=== PATIENT | female | born 1970 | race Caucasian/White ===

== ENCOUNTER 2021-12-22 13:54 | Observation (INO) ==
[2021-12-22] MEDS ORDERED: *HR* OxyCODONE/APAP 5/325 TABLET PO ONE (14:41)
[2021-12-22 15:32] LABS: Basophils % 0.5 %; Eosinophils # 0.1 K/mcL (0.0-0.6); Eosinophils % 1.7 %; Hematocrit 34.7 % (35.3-44.9); Hemoglobin 10.8 g/dL (11.5-15.4); Immature Granulocytes % 0.4 % (0-4); Lymphocytes # 0.9 K/mcL (0.6-4.6); Lymphocytes % 12.6 %; Mean Corpuscular HGB Conc 31.1 g/dL (31.6-35.5); Mean Corpuscular Hemoglobin 28.1 pg (28.0-33.3); Mean Corpuscular Volume 90.1 fL (83.0-100.0); Mean Platelet Volume 9.4 fL (9.4-12.4); Monocytes # 0.9 K/mcL (0.0-1.3); Monocytes % 11.4 %; Neutrophils # 5.5 K/mcL (1.6-8.9); Platelet Count 483 K/mcL (140-400); Red Blood Count 3.85 M/mcL (3.82-4.97); Red Cell Distribution Width 15.9 % (11.5-14.5); Segmented Neutrophils % 73.4 %; White Blood Count 7.4 K/mcL (4.3-11.1)
[2021-12-22 15:54] LABS: Albumin 3.9 g/dL (3.5-5.7); Albumin/Globulin Ratio 1.1 (1.1-2.2); Bilirubin,Total 0.3 mg/dL (0.3-1.0); Calcium 8.9 mg/dL (8.6-10.3); Globulin 3.6 g/dL (2.4-3.5); Potassium 2.4 mEq/L (3.5-5.1); Total Protein 7.5 g/dL (6.4-8.9)
[2021-12-22 16:37] LABS: Magnesium 1.7 mg/dL (1.6-2.6)
[2021-12-22] MEDS ORDERED: 0.9 % Sodium Chloride 500 ML IVC ONE (17:09)
[2021-12-22] MEDS ORDERED: Naloxone 0.4 MG/ML INJ IVP PRN (17:52)
[2021-12-22] MEDS ORDERED: Ondansetron ODT 4 MG TAB.RAPDIS SL PRN (17:52)
[2021-12-22] MEDS ORDERED: Budesonide/Formoterol 160/4.5 1 PUFF INH IH PRN (17:53)
[2021-12-22] MEDS ORDERED: 0.9 % Sodium Chloride 250 ML ONE (19:37)
[2021-12-22] MEDS: Gabapentin 300 MG CAPSULE PO SCH (19:45)
[2021-12-22] MEDS: *HR* Rivaroxaban 10 MG TABLET PO SCH (19:45)
[2021-12-22 21:27] LABS: Bacteria,Urine Few per hpf (None-Few); Bilirubin,Urine Negative (Negative); Blood,Urine Negative (Negative); Clarity,Urine Clear (Clear); Color,Urine Light-Yellow (Yellow); Glucose,Urine (UA) Normal (Normal); Ketones,Urine Trace mg/dL (Negative); Leukocyte Esterase,Urine Negative (Negative); Mucus,Urine Few per lpf (None-Few); Nitrite,Urine Negative (Negative); PH,Urine 6.5 pH Units (5.0-8.0); Protein,Urine 30 mg/dL (Neg-Trace); RBC,Urine 0-3 per hpf (0-3); Specific Gravity,Urine 1.018 (1.010-1.025); Squamous Epithelial Cell,Urine Moderate per hpf (None-Few); Urobilinogen,Urine Normal (Normal); WBC,Urine 0-3 per hpf (0-3)
[2021-12-22 21:35] LABS: Protein/Creatinine Ratio,Urine 0.57 mg/mg (0.00-0.20); Sodium, Urine 35.4 mEq/L
[2021-12-23 06:20] LABS: Basophils % 0.8 %; Eosinophils # 0.2 K/mcL (0.0-0.6); Eosinophils % 4.3 %; Hematocrit 35.1 % (35.3-44.9); Hemoglobin 10.9 g/dL (11.5-15.4); Immature Granulocytes % 0.4 % (0-4); Lymphocytes # 1.5 K/mcL (0.6-4.6); Lymphocytes % 29.5 %; Mean Corpuscular HGB Conc 31.1 g/dL (31.6-35.5); Mean Corpuscular Hemoglobin 28.4 pg (28.0-33.3); Mean Corpuscular Volume 91.4 fL (83.0-100.0); Mean Platelet Volume 9.5 fL (9.4-12.4); Monocytes # 0.7 K/mcL (0.0-1.3); Monocytes % 13.8 %; Neutrophils # 2.7 K/mcL (1.6-8.9); Platelet Count 437 K/mcL (140-400); Red Blood Count 3.84 M/mcL (3.82-4.97); Red Cell Distribution Width 16.3 % (11.5-14.5); Segmented Neutrophils % 51.2 %; White Blood Count 5.2 K/mcL (4.3-11.1)
[2021-12-23 06:32] LABS: INR 1.5; Prothrombin Time 16.4 Seconds (9.4-12.1)
[2021-12-23 06:39] LABS: BUN/Creatinine Ratio 12 (6-26); Blood Urea Nitrogen 12 mg/dL (6-20); Calcium 8.9 mg/dL (8.6-10.3); Carbon Dioxide 24 mEq/L (23-29); Chloride 104 mEq/L (98-107); Glucose 111 mg/dL (70-105); Magnesium 2.2 mg/dL (1.6-2.6); Osmolality,Calculated 282 (280-300); Potassium 2.6 mEq/L (3.5-5.1); Sodium 136 mEq/L (136-145); eGFR For African Americans > 60 (> 60); eGFR For Non-African Americans 56 (> 60)
[2021-12-23 06:51] LABS: Phosphorous 3.2 mg/dL (2.7-4.5)
[2021-12-23] MEDS: Mirtazapine 15 MG TABLET PO SCH (08:12)
[2021-12-23] MEDS: BuPROPion XL (24 HR) 150 MG TABLET PO SCH (08:12)
[2021-12-23] MEDS: Gabapentin 300 MG CAPSULE PO SCH ×2 (08:12→20:38)
[2021-12-23] MEDS ORDERED: 0.9 % Sodium Chloride 250 ML ONE (08:29)
[2021-12-23] MEDS ORDERED: Furosemide 40 MG TABLET PO SCH (09:00)
[2021-12-23] MEDS ORDERED: Spironolactone 25 MG TABLET PO SCH (09:00)
[2021-12-23] MEDS: *HR* Rivaroxaban 10 MG TABLET PO SCH (18:39)
[2021-12-23] MEDS: hydrOXYzine pamoate 25 MG CAPSULE PO PRN (20:38)
[2021-12-24 03:39] LABS: Basophils % 0.7 %; Eosinophils # 0.2 K/mcL (0.0-0.6); Eosinophils % 4.3 %; Hematocrit 32.6 % (35.3-44.9); Hemoglobin 10.3 g/dL (11.5-15.4); Immature Granulocytes % 0.4 % (0-4); Lymphocytes # 1.7 K/mcL (0.6-4.6); Lymphocytes % 32.4 %; Mean Corpuscular HGB Conc 31.6 g/dL (31.6-35.5); Mean Corpuscular Hemoglobin 28.6 pg (28.0-33.3); Mean Corpuscular Volume 90.6 fL (83.0-100.0); Mean Platelet Volume 9.7 fL (9.4-12.4); Monocytes # 0.7 K/mcL (0.0-1.3); Monocytes % 12.3 %; Neutrophils # 2.7 K/mcL (1.6-8.9); Platelet Count 411 K/mcL (140-400); Red Cell Distribution Width 16.6 % (11.5-14.5); Segmented Neutrophils % 49.9 %; White Blood Count 5.4 K/mcL (4.3-11.1)
[2021-12-24 03:48] LABS: BUN/Creatinine Ratio 11 (6-26); Blood Urea Nitrogen 9 mg/dL (6-20); Calcium 9.2 mg/dL (8.6-10.3); Carbon Dioxide 25 mEq/L (23-29); Chloride 107 mEq/L (98-107); Glucose 110 mg/dL (70-105); Osmolality,Calculated 285 (280-300); Sodium 138 mEq/L (136-145); eGFR For African Americans > 60 (> 60); eGFR For Non-African Americans > 60 (> 60)
[2021-12-24] MEDS: Gabapentin 300 MG CAPSULE PO SCH ×2 (09:11→20:19)
[2021-12-24] MEDS: BuPROPion XL (24 HR) 150 MG TABLET PO SCH (09:11)
[2021-12-24] MEDS: Mirtazapine 15 MG TABLET PO SCH (09:12)
[2021-12-24 14:31] LABS: BUN/Creatinine Ratio 11 (6-26); Blood Urea Nitrogen 9 mg/dL (6-20); Calcium 9.7 mg/dL (8.6-10.3); Carbon Dioxide 22 mEq/L (23-29); Chloride 106 mEq/L (98-107); Glucose 114 mg/dL (70-105); Osmolality,Calculated 282 (280-300); Potassium 3.9 mEq/L (3.5-5.1); Sodium 136 mEq/L (136-145); eGFR For African Americans > 60 (> 60); eGFR For Non-African Americans > 60 (> 60)
[2021-12-24] MEDS: *HR* Rivaroxaban 10 MG TABLET PO SCH (17:50)
[2021-12-24] MEDS: hydrOXYzine pamoate 25 MG CAPSULE PO PRN (21:54)
[2021-12-25 05:34] LABS: BUN/Creatinine Ratio 14 (6-26); Blood Urea Nitrogen 10 mg/dL (6-20); Calcium 9.3 mg/dL (8.6-10.3); Carbon Dioxide 25 mEq/L (23-29); Chloride 108 mEq/L (98-107); Glucose 111 mg/dL (70-105); Osmolality,Calculated 286 (280-300); Potassium 3.6 mEq/L (3.5-5.1); Sodium 138 mEq/L (136-145); eGFR For African Americans > 60 (> 60); eGFR For Non-African Americans > 60 (> 60)
[2021-12-25] MEDS: Mirtazapine 15 MG TABLET PO SCH (08:26)
[2021-12-25] MEDS: Gabapentin 300 MG CAPSULE PO SCH ×2 (08:27→20:55)
[2021-12-25] MEDS: BuPROPion XL (24 HR) 150 MG TABLET PO SCH (08:27)
[2021-12-25] MEDS ORDERED: Nitroglycerin 0.4 MG TAB.SUBL SL PRN (08:57)
[2021-12-25] MEDS: *HR* OxyCODONE Immed Rel 5 MG TABLET PO PRN (15:28)
[2021-12-25] MEDS ORDERED: Isovue-370 500 ML BOTTLE IVP ONE (17:39)
[2021-12-25] MEDS: *HR* Rivaroxaban 10 MG TABLET PO SCH (18:03)
[2021-12-25] MEDS: hydrOXYzine pamoate 25 MG CAPSULE PO PRN (20:55)
[2021-12-25] MEDS: *HR* HYDROcodone/Acet 5/325 mg TABLET PO PRN (20:56)
[2021-12-26] MEDS: *HR* OxyCODONE Immed Rel 5 MG TABLET PO PRN ×3 (01:46→18:07)
[2021-12-26] MEDS: Melatonin 3 MG TABLET PO PRN ×2 (01:46→22:12)
[2021-12-26 05:21] LABS: Influenza A PCR Negative (Negative); Influenza B PCR Negative (Negative); Resp. Syncytial Virus PCR Negative (Negative)
[2021-12-26] MEDS: *HR* HYDROcodone/Acet 5/325 mg TABLET PO PRN ×3 (05:24→22:12)
[2021-12-26 05:25] LABS: SARS-CoV-2 by PCR (In House) Negative (Negative)
[2021-12-26 07:40] LABS: BUN/Creatinine Ratio 18 (6-26); Blood Urea Nitrogen 10 mg/dL (6-20); Calcium 9.3 mg/dL (8.6-10.3); Carbon Dioxide 24 mEq/L (23-29); Chloride 108 mEq/L (98-107); Glucose 112 mg/dL (70-105); Osmolality,Calculated 284 (280-300); Potassium 4.1 mEq/L (3.5-5.1); Sodium 137 mEq/L (136-145); eGFR For African Americans > 60 (> 60); eGFR For Non-African Americans > 60 (> 60)
[2021-12-26] MEDS: Mirtazapine 15 MG TABLET PO SCH (08:27)
[2021-12-26] MEDS: Gabapentin 300 MG CAPSULE PO SCH ×2 (08:27→21:25)
[2021-12-26] MEDS: BuPROPion XL (24 HR) 150 MG TABLET PO SCH (08:27)
[2021-12-26] MEDS: Acetaminophen 325 MG TABLET PO PRN (08:29)
[2021-12-26] MEDS: hydrOXYzine pamoate 25 MG CAPSULE PO PRN (13:43)
[2021-12-26] MEDS: *HR* Rivaroxaban 10 MG TABLET PO SCH (18:03)
[2021-12-27] MEDS: hydrOXYzine pamoate 25 MG CAPSULE PO PRN ×3 (00:47→20:48)
[2021-12-27] MEDS: Acetaminophen 325 MG TABLET PO PRN (00:47)
[2021-12-27 04:46] LABS: BUN/Creatinine Ratio 25 (6-26); Blood Urea Nitrogen 14 mg/dL (6-20); Carbon Dioxide 25 mEq/L (23-29); Chloride 109 mEq/L (98-107); Glucose 102 mg/dL (70-105); Osmolality,Calculated 289 (280-300); Potassium 4.5 mEq/L (3.5-5.1); Sodium 139 mEq/L (136-145); eGFR For African Americans > 60 (> 60); eGFR For Non-African Americans > 60 (> 60)
[2021-12-27] MEDS: *HR* OxyCODONE Immed Rel 5 MG TABLET PO PRN ×3 (06:18→22:42)
[2021-12-27] MEDS: Mirtazapine 15 MG TABLET PO SCH (08:55)
[2021-12-27] MEDS: Gabapentin 300 MG CAPSULE PO SCH ×2 (08:55→20:48)
[2021-12-27] MEDS: BuPROPion XL (24 HR) 150 MG TABLET PO SCH (08:55)
[2021-12-27] MEDS: *HR* HYDROcodone/Acet 5/325 mg TABLET PO PRN ×2 (10:20→18:32)
[2021-12-27] MEDS: *HR* Rivaroxaban 10 MG TABLET PO SCH (17:27)
[2021-12-27] MEDS: Melatonin 3 MG TABLET PO PRN (23:56)
[2021-12-28] MEDS: *HR* HYDROcodone/Acet 5/325 mg TABLET PO PRN ×3 (02:43→20:12)
[2021-12-28 03:21] LABS: BUN/Creatinine Ratio 23 (6-26); Blood Urea Nitrogen 13 mg/dL (6-20); Calcium 9.1 mg/dL (8.6-10.3); Carbon Dioxide 25 mEq/L (23-29); Chloride 108 mEq/L (98-107); Glucose 105 mg/dL (70-105); Osmolality,Calculated 286 (280-300); Potassium 4.4 mEq/L (3.5-5.1); Sodium 138 mEq/L (136-145); eGFR For African Americans > 60 (> 60); eGFR For Non-African Americans > 60 (> 60)
[2021-12-28] MEDS: *HR* OxyCODONE Immed Rel 5 MG TABLET PO PRN ×2 (06:42→14:44)
[2021-12-28] MEDS: Acetaminophen 325 MG TABLET PO PRN (07:42)
[2021-12-28] MEDS: BuPROPion XL (24 HR) 150 MG TABLET PO SCH (07:42)
[2021-12-28] MEDS: Mirtazapine 15 MG TABLET PO SCH (07:42)
[2021-12-28] MEDS: Gabapentin 300 MG CAPSULE PO SCH ×2 (07:42→20:12)
[2021-12-28] MEDS: *HR* Rivaroxaban 10 MG TABLET PO SCH (17:02)
[2021-12-29] MEDS: Melatonin 3 MG TABLET PO PRN (00:28)
[2021-12-29] MEDS: hydrOXYzine pamoate 25 MG CAPSULE PO PRN (00:28)
[2021-12-29] MEDS: *HR* OxyCODONE Immed Rel 5 MG TABLET PO PRN ×2 (01:33→10:21)
[2021-12-29] MEDS: *HR* HYDROcodone/Acet 5/325 mg TABLET PO PRN (05:46)
[2021-12-29] MEDS: Mirtazapine 15 MG TABLET PO SCH (08:28)
[2021-12-29] MEDS: BuPROPion XL (24 HR) 150 MG TABLET PO SCH (08:28)
[2021-12-29] MEDS: Gabapentin 300 MG CAPSULE PO SCH (08:28)
[2021-12-29 11:59] VITALS: BP 146/78; PULSE 83; TEMP 98; O2SAT 94
== END 2021-12-29 14:40 ==
LOC: 3NENU 13:54 → EMEROOARM 13:54 → SUATTDRO 17:13 → 3NENU 18:30 → 3BNU 12-27 18:48
PROVIDERS: ADMIT Pharmacist; ATTEND Internal Medicine